=== PATIENT | male | born 1980 | race Caucasian/White ===

== ENCOUNTER 2018-03-11 21:23 | Emergency (ER) | payer MEDICAID ==
[~2018-03-11] VITALS: Ht 177.8 cm; Wt 68.5 kg
[2018-03-11 21:24] VITALS: BP 118/78
[2018-03-11] MEDS ORDERED: IBUPROFEN 200 MG TABLET ONE (22:21)
[2018-03-11] MEDS ORDERED: HYDROcodone/APAP 5/325 TABLET ONE (22:21)
[2018-03-11] MEDS ORDERED: HYDROcodone/APAP 5/325 TABLET PO ONE (22:30)
[2018-03-11] MEDS ORDERED: IBUPROFEN 200 MG TABLET PO ONE (22:30)
== END 2018-03-11 22:47 | disposition home or self-care (01) ==
LOC: ED 22:41
DX: S02.609A Fracture of mandible, unspecified, initial encounter for closed fracture (principal); K05.00 Acute gingivitis, plaque induced; F17.200 Nicotine dependence, unspecified, uncomplicated; V89.2XXA Person injured in unspecified motor-vehicle accident, traffic, initial encounter; Y93.89 Activity, other specified; Y92.488 Other paved roadways as the place of occurrence of the external cause; Y99.8 Other external cause status
CPT/HCPCS: 99283